=== PATIENT | male | born 1980 | race Caucasian/White ===

== ENCOUNTER 2025-07-16 06:05 | Day surgery (SDC) | payer OTHER ==
[~2025-07-16] VITALS: Ht 177.8 cm; Wt 106.2 kg
[~2025-07-16 06:05] MED LIST: CYCL10 PO; HYDR1TAB94 PO; IBUP800 PO
[2025-07-16] MEDS ORDERED: CeFAZolin Sodium 2,000 MG VIAL ONE (06:25)
[2025-07-16] MEDS ORDERED: Tranexamic Acid 100 ML IV ONE (06:25)
[2025-07-16] MEDS ORDERED: IBUPROFEN IB200 MG PO (06:31)
[2025-07-16] MEDS ORDERED: Lidocaine 1%-Epineph 1:100000 20 ML MDV ONE (07:06)
[2025-07-16] MEDS ORDERED: Vancomycin HCl 1000 MG ADDvantage ONE (07:06)
[2025-07-16] MEDS ORDERED: Bupivacaine HCl 0.25% 30 ML Injection ONE (07:07)
[2025-07-16] MEDS ORDERED: Midazolam HCl 1MG / ML 2ML Vial ONE (07:08)
[2025-07-16] MEDS ORDERED: Dexmedetomidine HCL 200 MCG / 2 ML ONE (07:10)
--- NOTE | 2025-07-16 07:27 | NUR ---
07/16/25 0727 Radha Xie ADDUCTOR CANAL BLOCK W/ DR WISE NASAL CANNULA O2 SET @ 2L O2 97% T/O: 07 BLOCK STARTED: 723 END BLOCK: 725
[2025-07-16] MEDS ORDERED: Rocuronium Bromide 10 MG/ML 5ML Injection IV ONE (07:32)
[2025-07-16] MEDS ORDERED: Ondansetron HCl 2 MG / ML 2ML Vial ONE (07:43)
[2025-07-16] MEDS ORDERED: FentaNYL Citrate 50 MCG/ML 2 ML Injection ONE ×2 (07:55→09:56)
[2025-07-16] MEDS ORDERED: HYDROmorphone HCl/Pf 1MG SYR ONE ×2 (09:13→10:54)
[2025-07-16] MEDS ORDERED: Sugammadex Sodium 200 MG/2ML SDV (100 MG/ML) ONE (09:17)
--- NOTE | 2025-07-16 12:03 | NUR ---
07/16/25 1203 Enio Casillas PT REPORTED SUTAINED 4/10 PAIN WITH WAVES OF MORE INTENSE PAIN UPON D/C. FLACC 410. HE DESCRIBED PAIN TOLERABLE AND EXPRESSED READINESS TO RETURN HOME.
== END 2025-07-16 12:02 | disposition home or self-care (01) ==
LOC: ORSCSDS 06:05
PROVIDERS: Orthopaedic Surgery Sports Medicine
PROC: 0SQC4ZZ Repair Right Knee Joint, Percutaneous Endoscopic Approach (ICD-10-PCS; principal; 2025-07-16 07:30)
PROC: 0MRN4KZ Replacement of Right Knee Bursa and Ligament with Nonautologous Tissue Substitute, Percutaneous Endoscopic Approach (ICD-10-PCS; principal; 2025-07-16 07:30)
DX: S83.511A Sprain of anterior cruciate ligament of right knee, initial encounter (principal); S83.211A Bucket-handle tear of medial meniscus, current injury, right knee, initial encounter; X50.1XXA Overexertion from prolonged static or awkward postures, initial encounter; E66.9 Obesity, unspecified; Z68.33 Body mass index [BMI] 33.0-33.9, adult
CPT/HCPCS: A9270; C1713; C1762; C1889; J0166; J0690; J1171; J2250; J2405; J2704; J3010; J3373; J7120

== ENCOUNTER 2025-07-30 13:24 | Emergency (ER) | payer OTHER ==
[~2025-07-30] VITALS: Ht 177.8 cm; Wt 113.4 kg
[~2025-07-30 13:24] MED LIST changes: +IBUPROFEN IB200 MG PO
[2025-07-30] MEDS ORDERED: DiphenhydrAMINE HCl 50 MG/ML 1ML Vial IV ONE (13:50)
[2025-07-30] MEDS ORDERED: NS 1,000 ML IV SCH (13:50)
[2025-07-30 14:32] LABS: BASOPHILS ABSOLUTE AUTO 0.03 K/mm3 (0.00-0.23); BASOPHILS PERCENT AUTO 0 % (0-2); EOSINOPHILS ABSOLUTE AUTO 0.13 K/mm3 (0.00-0.68); EOSINOPHILS PERCENT AUTO 1 % (0-6); Hematocrit 44.5 % (37.0-53.0); Hemoglobin 15.3 g/dL (13.5-17.5); IMMATURE GRAN ABSOLUTE AUTO 0.07 K/mm3 (0.00-0.10); IMMATURE GRAN PERCENT AUTO 0 % (0-1); LYMPHOCYTES ABSOLUTE AUTO 2.83 K/mm3 (0.84-5.20); LYMPHOCYTES PERCENT AUTO 16 % (21-46); MONOCYTES ABSOLUTE AUTO 0.98 K/mm3 (0.16-1.47); MONOCYTES PERCENT AUTO 6 % (4-13); Mean Corpuscular HGB Conc 34.4 g/dL (31.5-36.5); Mean Corpuscular Volume 83 fL (80-100); NEUTROPHILS ABSOLUTE AUTO 13.49 K/mm3 (1.96-9.15); NEUTROPHILS PERCENT AUTO 77 % (41-73); NRBC ABSOLUTE 0.00 K/mm3 (0.00-0.02); NRBC Auto 0.0 /100 WBC (0.0-0.2); Platelet Count 333 K/mm3 (150-400); RDW Coefficient Variation 12.9 % (11.7-14.2); RDW Standard Deviation 38.9 fL (35.1-46.3)
[2025-07-30] MEDS ORDERED: Ondansetron HCl 2 MG / ML 2ML Vial IV ONE (14:45)
[2025-07-30 15:19] LABS: Alanine Aminotransfer (ALT/SGP 39.0 U/L (12-78); Albumin, Blood 3.8 g/dL (3.4-5.0); Albumin/Globulin Ratio 1.1 (0.8-1.8); Anion Gap 10.0 mmol/L (3-11); Aspartate Aminotrans (AST/SGOT 12.0 U/L (12-37); Bilirubin, Total 0.7 mg/dL (0.1-1.0); Blood Urea Nitrogen 16.0 mg/dL (8-24); CO2, Blood 25.0 mmol/L (21-32); Calcium, Blood 9.2 mg/dL (8.5-10.1); Chloride, Blood 104.0 mmol/L (98-108); Creatinine, Blood 0.87 mg/dL (0.60-1.20); Globulin, Blood 3.4 g/dL (2.2-4.0); Glucose, Blood 118.0 mg/dL (70-99); Potassium, Blood 3.8 mmol/L (3.5-5.5); Sodium, Blood 135.0 mmol/L (136-145); Total Protein, Blood 7.2 g/dL (6.4-8.2)
[2025-07-30] MEDS ORDERED: ONDA4ODT MM (16:34)
[2025-07-30] MEDS ORDERED: FAMO20 PO (16:34)
[2025-07-30] MEDS ORDERED: PRED20 PO (16:34)
[2025-07-30] MEDS ORDERED: BENADRYL25 M1 PO (16:34)
[2025-07-30] MEDS ORDERED: EPIPEN0.3 MG/0.1 IM (16:58)
== END 2025-07-30 16:45 | disposition home or self-care (01) ==
LOC: ER 13:24
PROVIDERS: Physician Assistant
DX: T78.40XA Allergy, unspecified, initial encounter (principal); F17.200 Nicotine dependence, unspecified, uncomplicated; Z91.018 Allergy to other foods; Z79.899 Other long term (current) drug therapy
CPT/HCPCS: 80053; 85025; 93005; 93010; 96374; 96375; 99285-25; J1200; J2405; J2919; J7030